=== PATIENT | male | born 1950 ===

== ENCOUNTER 2018-09-28 15:38 | Outpatient (REF) | payer MEDICARE, BC, SELFPAY ==
[2018-09-28 16:23] LABS: HCT 41.4 % (40.0-50.0); HGB 13.8 g/dL (13.5-17.5); Mean Corp. HGB Concentration 33.3 g/dL (32.0-36.0); Mean Corpuscular Hemoglobin 30.5 pg (27.0-33.0); Mean Corpuscular Volume 91.6 fL (80-95); Mean Platelet Volume 11.3 fL (8.0-11.0); Platelet Count 251 x1000/uL (130-400); RBC 4.52 m/cumm (4.50-6.00); RBC Distribution Width 14.2 % (11.8-14.1); White Blood Cell Count 5.95 k/cumm (4.4-10.8)
[2018-09-28 16:43] LABS: Anion Gap 11.5 mmol/L (3-11); BUN 15 mg/dL (7-18); CO2 24.5 mmol/L (21.0-32.0); CREATININE 0.93 mg/dL (0.70-1.30); Chloride 101 mmol/L (98-107); Cholesterol 216 mg/dL (50-200); Glucose 94 mg/dL (70-100); HDL Cholesterol 60 mg/dL (40-60); LDL CHOLESTEROL 128 mg/dL (<100); Potassium 4.7 mmol/L (3.5-5.1); Sodium 137 mmol/L (136-145); Triglyceride 101 mg/dL (30-150)
[2018-09-28 16:50] LABS: Calcium 9.4 mg/dL (8.5-10.1)
== END 2018-09-28 15:58 ==
LOC: NCHCN 15:38
PROVIDERS: PCP Internal Medicine; Visit Provider Internal Medicine
DX: I10 Essential (primary) hypertension (principal); R55 Syncope and collapse; K92.1 Melena; R13.13 Dysphagia, pharyngeal phase; K58.9 Irritable bowel syndrome, unspecified; E66.9 Obesity, unspecified; R42 Dizziness and giddiness
CPT/HCPCS: 80048; 80061; 83721; 85027; 87324

== ENCOUNTER 2018-10-09 04:27 | Outpatient (CLI) | payer MEDICARE, BC, SELFPAY ==
--- NOTE | 2018-11-12 05:39 | CER_ITS ---
PREVENTICE MONITOR DEVICE INTERPRETATION DATE OF STUDY/DICTATION November 11, 2018 INDICATION Dizziness. REQUESTING PROVIDER Geoffrey Velázquez M.D. ANALYSIS TIME The patient was monitored for 20 days and 18 hours. FINDINGS Baseline sinus rhythm. Average heart rate 71 beats per minute, range 55 to 107 beats per minute. Rare ectopt One 8-minute episode of atrial fibrillation. Average heart rate 91 beats per minute. No pauses greater than 3 seconds. No higher degree heart block. SYMPTOMS Three patient events. None of these events correlated with arrhythmias. FINAL INTERPRETATION One 8 minute episode of paroxysmal atrial fibrillation with controlled ventricular response, asymptomatic. Chemo Weiss M.D. ABRAM/paddy T - 11/12/18
== END 2018-10-09 04:47 ==
PROVIDERS: PCP Internal Medicine; Visit Provider Internal Medicine
DX: R55 Syncope and collapse (principal); I48.0 Paroxysmal atrial fibrillation
CPT/HCPCS: 93270

== ENCOUNTER 2018-11-11 14:13 | Outpatient (CLI) | payer MEDICARE, BC, SELFPAY | END 2018-11-11 14:33 | PROVIDERS: PCP Internal Medicine; Referring Provider Internal Medicine; Visit Provider Student in an Organized Health Care Education/Training Program | DX: R55 Syncope and collapse (principal); I48.0 Paroxysmal atrial fibrillation | CPT/HCPCS: 93228 ==

== ENCOUNTER 2018-11-24 16:56 | Outpatient (REF) | payer MEDICARE, BC, SELFPAY ==
[2018-11-24 21:18] LABS: Calculated LDL 97; Cholesterol 199 mg/dL (50-200); HDL Cholesterol 81 mg/dL (40-60); Triglyceride 108 mg/dL (30-150)
== END 2018-11-24 17:16 ==
LOC: NCHCN 16:56
PROVIDERS: PCP Internal Medicine; Visit Provider Internal Medicine
DX: E78.5 Hyperlipidemia, unspecified (principal); E66.9 Obesity, unspecified
CPT/HCPCS: 80061; 83721

== ENCOUNTER 2018-12-09 11:02 | Outpatient (CLI) | payer MEDICARE, BC, SELFPAY ==
--- NOTE | 2018-12-09 09:57 | DI.RAD_ITS ---
SYMPTOMS/DIAGNOSIS: ANKLE PAIN LEFT ANKLE: Three views were obtained. There is a small osteophyte at the site of attachment of the plantar fascia on the calcaneus. The ankle mortise is well maintained. No other significant bony or soft tissue abnormality seen.
== END 2018-12-09 11:22 ==
PROVIDERS: PCP Internal Medicine; Referring Provider Internal Medicine; Visit Provider Student in an Organized Health Care Education/Training Program
DX: M25.572 Pain in left ankle and joints of left foot (principal); M25.772 Osteophyte, left ankle; M25.472 Effusion, left ankle
CPT/HCPCS: 99203; 73610; L1902

== ENCOUNTER 2018-12-16 00:29 | Outpatient (CLI) | payer MEDICARE, BC, SELFPAY ==
--- NOTE | 2018-12-16 09:48 | DI.MRI_ITS ---
SYMPTOM/DIAGNOSIS: LT ANKLE EFFUSION MRI LEFT ANKLE: The anterior talofibular, posterior talofibular, anterior tibial fibular and calcaneal fibular and deltoid, and spring ligaments appear intact. The Achilles flexors and extensors and perineal tendons and tibialis anterior and tibialis posterior tendons are intact. The muscles are unremarkable. There is no joint effusion. Note is made of fluid in the sinus tarsi. Thee is also loss of normal sinus tarsi fat at least some of the ligaments within the sinus tarsi appear to be intact. The tarsal tunnel is unremarkable. The plantar fascia is unremarkable. There is complete loss of the articular cartilage involving the second metatarsal base and intermediate cuneiform. There is also diffuse thinning of the articular cartilage but no other isolated areas of joint space loss are seen. There is edema and cystic change in the fibular tip/lateral malleolus. A small intraosseous ganglion appears to be present also in the lateral malleolus tip with extension in to the adjacent soft tissues. There is a small joint effusion involving the subtalar joint with fluid noted about the posterior and anterior margins of the joint. Edema is also noted in the intermediate cuneiform bone with loss of joint space between the intermediate cuneiform and the second metatarsal base suggesting degenerative osteoarthritis. SUMMARY: Abnormal appearance of the sinus tarsi as noted above. Correlate for the sinus tarsi syndrome. Cystic changes and edema of the fibular tip possibly due to prior trauma and/or degenerative change. There are isolated degenerative arthritic changes involving the intermediate cuneiform and second metatarsal base.
--- NOTE | 2018-12-16 16:28 | DI.VRAD_ITS ---
EXAM: MR Left Lower Extremity Without Contrast, Ankle EXAM DATE/TIME: 12/16/2018 9:47 AM CLINICAL HISTORY: 68 years old, male; Pain; Left; Patient HX: Lt ankle swelling TECHNIQUE: Imaging protocol: MR of the Left ankle without contrast. COMPARISON: CR XR ANKLE LT COMPLETE 12/09/2018 10:08 AM FINDINGS: LIGAMENTS: Anterior talofibular: Unremarkable. No tear. Posterior talofibular: Unremarkable. No tear. Anterior tibiofibular: Unremarkable. No tear. Posterior tibiofibular: Unremarkable. No tear. Calcaneofibular: Appears to be intact, but there is surrounding edema and thickening of the ligament. Deltoid: Unremarkable. No tear. Spring: Unremarkable. No tear. TENDONS: Achilles: Unremarkable. No tear. Flexors: Unremarkable. No tear. Extensors: Unremarkable. No tear. Peroneal: Unremarkable. No tear. Tibialis anterior: Unremarkable. No tear. Tibialis posterior: Unremarkable. No tear. Muscles: Unremarkable. Fluid: No joint effusion. Sinus tarsi: Fluid is present in the sinus Tarsi, There is also loss of normal sinus Tarsi fat. At least some of the ligaments within the sinus Tarsi appear to be intact. Tarsal tunnel: Unremarkable. Plantar fascia: Unremarkable. Cartilage: Complete loss of articular cartilage involving the second metatarsal base and intermediate cuneiform. There is also diffuse thinning of articular cartilage, but no other isolated areas of the joint space loss. Bones/joints: There is edema and cystic change in the fibular tip/lateral malleolus. A small intraosseous ganglion appears to be present also the lateral malleolus tip with extension into the adjacent soft tissues. There is a small joint effusion involving the subtalar joint with fluid noted about both anterior and posterior margins of the joint. Edema is also noted in the intermediate cuneiform bone with loss of joint space between the intermediate cuneiform and second metatarsal base suggesting degenerative osteoarthritic changes. IMPRESSION: 1. Abnormal appearance of the Sinus Tarsi as above. Please correlate for sinus tarsi syndrome. 2. Cystic change and edema of the fibular tip possibly due to prior trauma and/or degenerative change. 3. Isolated degenerative arthritic changes involving the intermediate cuneiform and second metatarsal base. Dictated and Authenticated by: Terry Regan MD. Ordering:FATOUMATA Jimenez MD
== END 2018-12-16 00:49 ==
PROVIDERS: PCP Internal Medicine; Visit Provider Student in an Organized Health Care Education/Training Program
DX: M25.472 Effusion, left ankle (principal); R60.0 Localized edema; M24.172 Other articular cartilage disorders, left ankle; M67.472 Ganglion, left ankle and foot
CPT/HCPCS: 73721; 99213

== ENCOUNTER 2019-02-08 16:00 | Outpatient (CLI) | payer MEDICARE, BC, SELFPAY ==
--- NOTE | 2019-02-08 15:45 | DI.RAD_ITS ---
SYMPTOM/DIAGNOSIS: LEFT FOOT PAIN LEFT FOOT: 02/08 Three views were obtained. There is an apparent flat foot deformity. Mild degenerative changes of the joints of the mid foot and forefoot noted. No other significant bony abnormality seen.
== END 2019-02-08 16:20 ==
PROVIDERS: PCP Internal Medicine; Referring Provider Internal Medicine; Visit Provider Student in an Organized Health Care Education/Training Program
DX: M25.472 Effusion, left ankle (principal); M79.672 Pain in left foot; M21.42 Flat foot [pes planus] (acquired), left foot; M19.072 Primary osteoarthritis, left ankle and foot; M76.822 Posterior tibial tendinitis, left leg
CPT/HCPCS: 99213; 73630

== ENCOUNTER → 2019-04-12 10:06 | Outpatient (BNVA) | payer MEDICARE, BC, SELFPAY | PROVIDERS: PCP Internal Medicine; Referring Provider Internal Medicine; Visit Provider Student in an Organized Health Care Education/Training Program | DX: M25.472 Effusion, left ankle (principal); M76.822 Posterior tibial tendinitis, left leg | CPT/HCPCS: 99213; L4361 ==

== ENCOUNTER 2019-05-10 13:48 | Outpatient (REF) | payer MEDICARE, BC, SELFPAY ==
[2019-05-10 15:28] LABS: Calculated LDL 104 mg/dL; Cholesterol 210 mg/dL (<200); HDL Cholesterol 93 mg/dL (40-60); Triglyceride 67 mg/dL (<150)
== END 2019-05-10 14:08 ==
LOC: NCHCN 13:48
PROVIDERS: PCP Internal Medicine; Visit Provider Internal Medicine
DX: I10 Essential (primary) hypertension (principal); E78.5 Hyperlipidemia, unspecified; I48.0 Paroxysmal atrial fibrillation; I25.10 Atherosclerotic heart disease of native coronary artery without angina pectoris; K58.9 Irritable bowel syndrome, unspecified
CPT/HCPCS: 80061

== ENCOUNTER → 2019-05-17 09:39 | Outpatient (BNVA) | payer MEDICARE, BC, SELFPAY | PROVIDERS: PCP Internal Medicine; Referring Provider Internal Medicine; Visit Provider Student in an Organized Health Care Education/Training Program | DX: M76.822 Posterior tibial tendinitis, left leg (principal) | CPT/HCPCS: 99212 ==

== ENCOUNTER 2019-12-08 03:00 | Outpatient (CLI) | payer MEDICARE, BC, SELFPAY ==
[2019-12-08 09:01] LABS: Hemoglobin A1C 5.5 % (3.8-5.6)
[2019-12-08 09:16] LABS: ALT 43 U/L (16-63); AST 26 U/L (15-37); Albumin 3.8 g/dL (3.4-5.0); Alkaline Phosphatase 92 U/L (46-116); Anion Gap 9.2 mmol/L (3-11); BUN 16 mg/dL (7-18); Bilirubin, Total 0.4 mg/dL (0.2-1.0); CO2 25.8 mmol/L (21.0-32.0); CREATININE 0.91 mg/dL (0.70-1.30); Calculated LDL 72 mg/dL (<100); Chloride 103 mmol/L (98-107); Cholesterol 153 mg/dL (<200); Glucose 109 mg/dL (74-106); HDL Cholesterol 65 mg/dL (40-60); Magnesium 2.1 mg/dL (1.8-2.4); Potassium 4.8 mmol/L (3.5-5.1); Sodium 138 mmol/L (136-145); Total Protein 6.4 g/dL (6.4-8.2); Triglyceride 84 mg/dL (<150)
[2019-12-10 11:41] LABS: Metanephrine, Free <0.20 nmol/L (<0.50); Normetanephrine, Free 0.33 nmol/L (<0.90)
== END 2019-12-08 03:20 ==
PROVIDERS: PCP Internal Medicine; Visit Provider Internal Medicine
DX: E78.5 Hyperlipidemia, unspecified (principal); R73.03 Prediabetes; R61 Generalized hyperhidrosis; R00.2 Palpitations
CPT/HCPCS: 36415; 80053; 80061; 83036; 83735; 83835

== ENCOUNTER → 2019-12-27 15:16 | Outpatient (BNVA) | payer MEDICARE, BC, SELFPAY | PROVIDERS: PCP Internal Medicine; Referring Provider Internal Medicine; Visit Provider Student in an Organized Health Care Education/Training Program | DX: M76.822 Posterior tibial tendinitis, left leg (principal) | CPT/HCPCS: 99213 ==

== ENCOUNTER 2020-03-17 08:29 | Outpatient (CLI) | payer MEDICARE, BC, SELFPAY ==
[2020-03-18 15:00] LABS: COVID-19 RT-PCR Result NEGATIVE (Negative)
== END 2020-03-17 08:49 ==
PROVIDERS: PCP Internal Medicine; Visit Provider Student in an Organized Health Care Education/Training Program
DX: Z11.59 Encounter for screening for other viral diseases (principal); Z01.818 Encounter for other preprocedural examination
CPT/HCPCS: U0003

== ENCOUNTER 2020-03-21 08:04 | Day surgery (SDC) | payer MEDICARE, BC, SELFPAY ==
[2020-03-21] VITALS (8 sets, daily range): BP systolic 96–145; BP diastolic 41–74; PULSE 59–80; RESP 13–22; TEMP 36.2–36.5; O2SAT 93–95
--- NOTE | 2020-03-21 08:30 | DI.RAD_ITS ---
EXAM: XR FOOT LT LIMITED CLINICAL HISTORY: Posteriortibial tendon dysfunction. TECHNIQUE: 2D and realtime digital imaging was performed. COMPARISON: CR XR foot LT complete from 02/08/2019 FINDINGS: Fluoroscopy was provided for Dr. Baird in the OR. Please see procedure note for details. Fluoro time: 57.9 sec, 1.86 mGy RADIATION DOSE DELIVERED:
[2020-03-21] MEDS: Lactated Ringers 1,000 ML 80 ML IV (08:35)
--- NOTE | 2020-03-21 09:34 | PDOC.DSDIS_ITS ---
Discharge Plan Disposition Patient Disposition: HOME Condition: Good Discharge Details Reason For Visit: Left Posterior Tibial Tendon Dysfunction Attending Provider: Tony Baird Primary Care Provider: Geoffrey Velázquez Home Meds and New Rx's Prescriptions: New celecoxib 200 mg capsule 200 mg PO BID PRN (Reason: pain) Qty: 60 RF: 1 aspirin 81 mg tablet,delayed release (DR/EC) 81 mg PO BID Qty: 60 RF: 0 acetaminophen 500 mg tablet 1,000 mg PO Q8H PRN (Reason: pain) Qty: 90 RF: 3 oxycodone 5 mg tablet 5 mg PO Q4H Qty: 18 RF: 0 Continued ezetimibe 10 mg tablet 10 mg PO DAILY RF: 0 Amitiza 24 mcg capsule 24 mcg PO DAILY RF: 0 loratadine 10 mg capsule 10 mg PO DAILY RF: 0 docusate sodium 100 mg capsule 100 mg PO DAILY RF: 0 multivitamin [Daily Multi-Vitamin] 1 EACH tablet 1 ea PO DAILY RF: 0 sildenafil [Viagra] 25 MG tablet 25 mg PO PRN RF: 0 nitroglycerin [Nitrostat] 0.4 MG tablet, sublingual 0.4 mg Buccal ONCE PRNRF: 0 colchicine [Colcrys] 0.6 MG tablet 0.6 mg PO DAILY PRNRF: 0 rosuvastatin [Crestor] 40 MG tablet 40 mg PO DAILY RF: 0 Discharge Instructions Additional Instructions: Dr. Baird?s Discharge Instructions Activity: You should remain non weight bearing to the left leg. You should use crutches, walker or knee scooter. It is okay to rest the foot on the ground but do not push off of the leg. Dressing: Keep the splint in place. Keep it clean and dry. Medications: - You should take Tylenol and anti-inflammatory Celebrex as your primary pain control medications. If this medication is not covered or too expensive, you may take 2 Aleve twice a day. - You have been prescribed a stronger pain medication Oxycodone for breakthrough pain, take as needed as prescribed. - You have also been prescribed a stomach acid reduction agent Pantoprozole to help reduce stomach acid and reflux. - You will be taking Aspirin 81mg twice a day for DVT prevention unless instructed otherwise. - If you have constipation you should take Colace or Miralax (both [id number]). It takes most people 3-4 days to have a bowel movement. Follow-up: 2 weeks. You should also call physical therapy to work on scheduling outpatient therapy sessions which can begin at 2 weeks. If you have any acute concerns or questions, please do not hesitate to contact the office at [phone]. You may contact Dr. Baird with any questions after hours through the hospital at [phone] or on his cell phone at [phone]. Referrals: Tony Baird MD [ [facility] STAFF PHYSICIAN] - Equipment/Supplies: Non-Weight Bearing Crutches and Splint Activity:: Elevate Remove Dressings/Wound Care:: Do Not Remove Shower/Bathe:: Cover Diet:: As Tolerated Discharge Orders Discharge Orders: Discharge Order (Routine); Ordered 03/21/20 Ordered By: Tony Baird
[2020-03-21] MEDS: ceFAZolin 2 GM/50 ML BAG IVPB (09:37)
[2020-03-21] MEDS: Bupivacaine 0.25% Pres-Free 30 ML VIAL (12:23)
[2020-03-21] MEDS: Bupivacaine LIPOSOME/PF 133 MG/10 ML VIAL IJ (12:23)
--- NOTE | 2020-03-22 16:58 | ROE_ITS ---
Date of service: 03/21/20 Time of Service: 12:10 Operative Note Operative Note DATE OF PROCEDURE: 03/21/20 PRE-OP DIAGNOSIS: Left Stage III Posterior Tibial Dysfunction POST-OP DIAGNOSIS: same PROCEDURE: Left Triple Arthrodesis with Gastroc Recession SURGEON: Tony Baird SUSPENDER CUTTER: Yanira Turner ANESTHESIA: spinal ESTIMATED BLOOD LOSS: 100 PATHOLOGY: none sent TOURNIQUET TIME: 120 COMPLICATIONS: None Patient was transported to: PACU Patient's condition: stable Implants: Arthrex 5.0 and 7.0mm cannulated compression screws. Arthrex aditya (#4) Indications: Maycol is a 69-year-old who has dealt with left foot pain and weakness and deformity for years. He has tried to treat this conservatively. However, he continues to have pain and limitations. He was seen by myself and at [facility] for a second opinion where triple arthrodesis was recommended due t o a stage III posterior tibial tendon dysfunction. I reviewed the risks such as bleeding, infection, pain, stiffness, malunion, nonunion, hardware prominence, hardware faiilure, damage to nerves and vessels, blood clot. Despite these risks, Maycol agreed to proceed. Findings: A triple arthrodesis was performed with screws and aditya without difficulty. Procedure Description: Maycol was greeted in the preoperative area. Consent was reviewed the patient and signed. A history and physical was updated. Once in the operating room, spinal anesthesia was administered. He was positioned in the supine position with the operative side placed onto a bone foam ramp. All bony prominences were well padded. Arms were placed out to the side, padded, and secured. A single dose of TXA, 1 gram, was then administered IV. Prophylactic antibiotics, cefazolin 2 grams, was given for prophylactic antibiotics. A tourniquet was placed high onto the left leg. A timeout was performed for safe surgery. The left leg was prepped with Chloraprep. The leg was draped with a stockinette and extremity drape. The left leg was then exsanguinated and the tourniquet inflated where it stayed for 120 minutes. A gastroc recession was performed first. The left leg externally rotated midpoint between the fibular tip and the head of the tibia was marked and using a reference point. The incision was made off the medial border of the gastrocsoleus complex. This was taken down to the superficial fascia. Once this was identified it was incised. Deep fascia was then recognized and cleared of any soft tissue. This was also incised sharply. Blunt dissection was able to separate psoas and gastrocnemius. The gastrocnemius tendon was isolated. Blunt dissection was carried over the width of the tendon and retractors were placed making sure to protect any neurovascular bundles. Once this was clear the gastrocnemius tendon was transected. This gained about 15 mm separation which corresponds about 15 degrees of dorsiflexion. The posterior fascia was then closed with interrupted 0 Vicryl. The deeper tissue was closed with 2-0 Vicryl. The skin was closed with 3-0 nylon. This area was injected with a mixture of 0.25% bupivacaine with Exparel. Attention was then turned to the foot. The standard lateral approach to the subtalar joint and the calcaneal joint was used to open the tip of the fibula to the base of the fourth metatarsal. This was taken down sharply through the skin. The upper border of the peroneal tendons was identified and used as a landmark. Deep dissection was carried down over the superior margin and the extensor digitorum brevis muscle belly was elevated exposing the subtalar joint, sinus Tarsi and calcaneocuboid joint. A Mac elevator was used to elevate off capsular tissues from around the subtalar joint as well as the calcaneocuboid joint. A small joint distractor was placed on the subtalar joint. Using a curette and remove the cartilage from the surfaces of the talus and the calcaneus. This is done for the posterior faect middle facet. The anterior facet was difficult to reach until later in the case. Attention was then turned to the calcaneocuboid joint. This was also distracted and capsular tissues were released with a Mac and with a knife. Curette was used to remove the cartilage. Once the joint is fully denuded of any cartilage I then used a set of chisels to feather the joint surfaces. Attention was then turned to the medial aspect of the foot. A standard dorsomedial incision was made from the tip of the medial malleolus towards the base of the first TMT joint. This is a not sharp to the skin. Deeper dissection was carried out between the posterior tibial tendon and the tibialis anterior tendon. The talonavicular joint and subtalar joint was identified. Deep tissue was elevated off to expose the joint. Further dissection was performed bluntly with a Mac elevator. A small joint distractor was once again utilized to open up the talonavicular joint. A curette removed the cartilage from the surface of the talus and the navicular. We had excellent visualization throughout the entirety of the 10 navicular joint. To ensure that we fully remove the cartilage from the lateral aspect of the talonavicular joint I r eapproach this from the lateral wound check once further. I also use this medial wound to further denude the anterior facet of the subtalar joint. Once these were all completed I continued with the feathering of the talonavicular joint followed by the subtalar joint. This was all performed with a chisel. I did fenestrate some holes into the joint surfaces with a 2.0 mm drill. With all of the joint surfaces now prepared, I reduce the foot. This was done by bringing the subtalar joint and approximately 5 degrees of valgus. The talonavicular joint was brought into some slight abduction, elevation, and pronation. A K wire from the 5.0 mm Arthrex cannulated screw system was then used to pin the talonavicular joint. Likewise, while holding reduction, a guidewire from the 7.0 mm cannulated screw system was then driven across the subtalar joint through the posterior facet starting in the calcaneal tuberosity. The foot was inspected. It appeared he plantigrade in appropriate position. X-rays also showed good positioning of the first 2 K wires. A second K wire was then placed from the calcaneus into the talus. This was placed slightly more medial. The attempt was to be divergent on the AP. Both screws were into the talar body and across the posterior facet. Starting with the subtalar joint and then placed 2 screws. The cortex was first open followed by tapered reamer af ter measuring the distance of the screw. Two 7.0 mm cannulated fully threaded compression screws were then placed across the subtalar joint. Just prior to passing these I did place demineralized bone matrix into the joint space. Screws were placed, driven below the edge of the bone. These provide adequate compression of the subtalar joint. This was visually inspected and should have no gapping. I then turned my attention to the talonavicular joint. Using the previous guidewire placed to hold the toe navicular joint stable I use this to place a 5.0 mm cannulated fully threaded screw. This is done in a similar fashion as a 7.0 millimeter screws and did so with excellent compression across the toe navicular joint. The compression was definitely mostly plantar and medial. Therefore, I was going to augment this fusion site with a staple. Using the ArthPayteller staple system I then prepared the pathway for the stable and loaded the staple into the spots. During this process there was a shift of the retractor which we thought had been replaced to the appropriate position. However, when the staple went and realized that stable and slid almost directly on top of the screw. However, there still was purchase in the bone and therefore I did leave. Nevertheless, I did place a second staple into the talonavicular joint with more dorsal as initially planned. This went in with no difficulty an x-ray showed that it was appropriate position in the talus and the navicular. Lastly, attention was turned back to the calcaneocuboid joint. Small amount demineralized bone matrix was placed within this joint. The calcaneocuboid joint was in excellent position without any other manipulation required. Therefore, I placed 2 aditya in a similar fashion without difficulty. After the aditya were placed final x-rays were obtained. The foot was plantigrade and was once again reviewed to make sure there is no other further concerns or issues with his alignment. The tourniquet was released at 120 minutes. There is no significant bleeding. The wounds were thoroughly irrigated. The skin, soft tissues, and deep tissues were injected with mixture of bupivacaine and Exparel. The medial wound was closed in a standard interrupted layered format. The lateral wound was closed first by incorporating the fascia of the EDB with the fascia of the lateral foot and then the skin and soft tissues. The wounds were dressed with Xeroform, 4 x 4's, ABD, cast padding. A short leg splint was applied. At the end of the case, all counts were correct. Maycol tolerated the procedure well without known complication and was taken to the PACU for recovery. He will be nonweightbearing in the left lower extremity until his follow-up.
== END 2020-03-21 14:35 | disposition home or self-care (01) ==
PROVIDERS: PCP Internal Medicine; Visit Provider Student in an Organized Health Care Education/Training Program
PROC: (CPT 28740; principal; 2020-03-21 10:00)
DX: M67.874 Other specified disorders of tendon, left ankle and foot (principal)
CPT/HCPCS: 28715; 27687; 73620; J0131; J0690; J1100; J1885; J2001; J2405; J3010

== ENCOUNTER 2020-04-06 10:20 | Outpatient (CLI) | payer MEDICARE, BC, SELFPAY ==
--- NOTE | 2020-04-06 10:28 | DI.RAD_ITS ---
EXAM: XR ANKLE LT COMPLETE CLINICAL HISTORY: s/p surgery. TECHNIQUE: 2D digital imaging was performed. COMPARISON: CR XR ANKLE LT COMPLETE from 12/09/2018 CR XR foot LT complete from 02/08/2019 XR FOOT LT LIMITED from 03/21/2020 FINDINGS: BONES: There are stable post operative changes present. No fracture or dislocation. Small plantar ca lcaneal spur. JOINTS: The joint spaces are well maintained. No joint effusion is present. SOFT TISSUE: Mild soft tissue swelling of the hindfoot. Vascular calcifications are present. IMPRESSION: Stable postoperative changes. DATA REPOSITORY: RADIATION DOSE DELIVERED:
== END 2020-04-06 10:40 ==
PROVIDERS: PCP Internal Medicine; Referring Provider Internal Medicine; Visit Provider Student in an Organized Health Care Education/Training Program
DX: Z98.1 Arthrodesis status (principal); M77.32 Calcaneal spur, left foot; M67.874 Other specified disorders of tendon, left ankle and foot; Z47.89 Encounter for other orthopedic aftercare
CPT/HCPCS: 73610

== ENCOUNTER 2020-05-04 12:01 | Outpatient (CLI) | payer MEDICARE, BC, SELFPAY ==
--- NOTE | 2020-05-04 11:15 | DI.RAD_ITS ---
EXAM: XR ANKLE LT COMPLETE CLINICAL HISTORY: post operative. TECHNIQUE: 2D digital imaging was performed. COMPARISON: CR XR ANKLE LT COMPLETE from 04/06/2020 FINDINGS: Again noted is fusion hardware in the hindfoot including 2 parallel threaded screws through the subta lar joint and aditya across the calcaneocuboid and talonavicular joints. There is no evidence of hardware loosening or fracture of the heart. No radiographic evidence of loo sening nor osteomyelitis. There is some soft tissue swelling evident over both sides of the ankle, s lightly more so than previous. Talar dome appears unremarkable. Vascular calcification is noted in the dorsalis pedis artery. Small inferior calcaneal spurs again noted. IMPRESSION: As above. Radiographically unchanged from 04/06/2020. DATA REPOSITORY: RADIATION DOSE DELIVERED:
== END 2020-05-04 12:21 ==
PROVIDERS: PCP Internal Medicine; Referring Provider Internal Medicine; Visit Provider Student in an Organized Health Care Education/Training Program
DX: Z98.1 Arthrodesis status (principal); Z47.89 Encounter for other orthopedic aftercare
CPT/HCPCS: 73610

== ENCOUNTER → 2020-09-29 09:14 | Outpatient (BNVA) | payer MEDICARE, BC, SELFPAY | PROVIDERS: PCP Internal Medicine; Referring Provider Internal Medicine; Visit Provider Student in an Organized Health Care Education/Training Program | DX: M25.572 Pain in left ankle and joints of left foot (principal); Z98.1 Arthrodesis status ==

== ENCOUNTER 2020-09-29 15:26 | Outpatient (CLI) | payer MEDICARE, BC, SELFPAY ==
--- NOTE | 2020-09-29 09:45 | DI.RAD_ITS ---
Exam(s) XR ANKLE LT COMPLETE EXAM: XR ANKLE LT COMPLETE CLINICAL HISTORY: f/u L triple arthrodesis with pain, S/P ANKLE FUSION, Z98.1 TECHNIQUE: 2D digital imaging was performed. COMPARISON: CR XR ANKLE LT COMPLETE from 05/04/2020 FINDINGS: BONES: No acute osseous fracture is present. No bony destructive lesion is seen. Postoperative change s are seen in the foot. Three of the 4 orthopedic aditya are now fractured. There is a small plant ar calcaneal spur. JOINTS:The ankle mortise is normally aligned. SOFT TISSUE: Vascular calcifications are seen in the soft tissues. IMPRESSION: DATA REPOSITORY: RADIATION DOSE DELIVERED:
== END 2020-09-29 15:46 ==
PROVIDERS: PCP Internal Medicine; Visit Provider Student in an Organized Health Care Education/Training Program
DX: M25.572 Pain in left ankle and joints of left foot (principal); Z98.1 Arthrodesis status; M77.32 Calcaneal spur, left foot
CPT/HCPCS: 99213; 73610

== ENCOUNTER 2020-10-05 02:21 | Outpatient (CLI) | payer MEDICARE, BC, SELFPAY ==
--- NOTE | 2020-10-05 08:00 | DI.CT_ITS ---
Exam(s) CT LOWER EXTREMITY LT WO EXAM: CT LOWER EXTREMITY LT WO CLINICAL HISTORY: eval subtalar fusion,S/P ANKLE FUSION,Z98.1 TECHNIQUE: COMPARISON: No exams were available for comparison FINDINGS: Noncontrast CT examination left foot performed. Patient has had a subtalar arthrodesis with fixation screws transfixing talus and calcaneus. Slight bony bridging appears to be present at a few sites o n today's examination. Note is also made of talonavicular arthrodesis, moderate bony bridging presen t here. A calcaneocuboid arthrodesis is also present, mild to moderate bony bridging present. Minimal degenerative changes the remaining midfoot joints are. No gross erosive or destructive proce ss. Fairly well maintained tibial joint noted. IMPRESSION: Intact arthrodesis as described above. 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 P lease see above discussion RADIATION DOSE DELIVERED: 406.67mGy.cm Total DLP RADIATION OPTIMIZATION: All CT scans at this facility use at least one of these dose optimization te chniques: automated exposure control; mA and/or kV adjustment per patient size (includes targeted exa ms where dose is matched to clinical indication); or iterative reconstruction.
== END 2020-10-05 02:41 ==
PROVIDERS: PCP Internal Medicine; Visit Provider Student in an Organized Health Care Education/Training Program
DX: Z98.1 Arthrodesis status (principal); M25.572 Pain in left ankle and joints of left foot
CPT/HCPCS: 73700

== ENCOUNTER → 2020-11-02 13:01 | Outpatient (BNVA) | payer MEDICARE, BC, SELFPAY | PROVIDERS: PCP Internal Medicine; Referring Provider Internal Medicine; Visit Provider Student in an Organized Health Care Education/Training Program | DX: M76.72 Peroneal tendinitis, left leg (principal); M25.572 Pain in left ankle and joints of left foot; Z98.1 Arthrodesis status | CPT/HCPCS: 20605; J1030 ==

== ENCOUNTER 2020-11-03 16:37 | Outpatient (REF) | payer MEDICARE, BC, SELFPAY ==
[2020-11-03 20:43] LABS: HCT 38.5 % (40.0-50.0); HGB 12.6 g/dL (13.5-17.5); MCH 29.4 pg (27.0-33.0); MCHC 32.7 % (32.0-36.0); MPV 10.6 fL (8.0-11.0); Platelet Count 274 10^3/uL (130-400); RBC 4.28 10^6/uL (4.36-5.78); RDW 13.7 % (11.8-14.1); RDW-SD 44.9 fL
[2020-11-03 21:01] LABS: Hemoglobin A1C 5.7 % (<5.7)
[2020-11-03 21:04] LABS: Anion Gap 13.5 mmol/L (3-11); BUN 14 mg/dL (7-18); CO2 21.5 mmol/L (21.0-32.0); CREATININE 0.9 mg/dL (0.70-1.30); Calcium 9.2 mg/dL (8.5-10.1); Calculated LDL 67 mg/dL (<100); Chloride 103 mmol/L (98-107); Cholesterol 155 mg/dL (<200); Glucose 82 mg/dL (74-106); HDL Cholesterol 72 mg/dL (40-60); Potassium 4.3 mmol/L (3.5-5.1); Sodium 138 mmol/L (136-145); Triglyceride 80 mg/dL (<150)
[2020-11-06 09:13] LABS: Iron 83 ug/dL (65-175); Total Iron Binding Capacity 330 ug/dL (250-450); Transferrin Sat 25 % (20-55)
[2020-11-06 09:20] LABS: PSA, Screening 0.7 ng/mL (0.0-4.5)
== END 2020-11-03 16:38 | disposition home or self-care (01) ==
LOC: NCHCN 16:37
PROVIDERS: PCP Internal Medicine; Visit Provider Internal Medicine
DX: D64.9 Anemia, unspecified (principal); I10 Essential (primary) hypertension; E78.5 Hyperlipidemia, unspecified; R73.03 Prediabetes; I25.10 Atherosclerotic heart disease of native coronary artery without angina pectoris; R10.30 Lower abdominal pain, unspecified; R35.0 Frequency of micturition; Z12.5 Encounter for screening for malignant neoplasm of prostate
CPT/HCPCS: 80048; 80061; 84153; 85027; 83036; 83540; 83550

== ENCOUNTER 2020-11-15 00:56 | Outpatient (CLI) | payer MEDICARE, BC, SELFPAY ==
[2020-11-15] MEDS: Breeza Beverage 473 ML BTL PO (09:35)
--- NOTE | 2020-11-15 10:58 | DI.CT_ITS ---
Exam(s) CT ABDOMEN PELVIS W EXAM: CT ABDOMEN PELVIS W CLINICAL HISTORY: LOW ABD PAIN,R10.30,URINARY FREQUENCY,R35.0,CHANGE IN BOWELS,R19.4. TECHNIQUE: Imaging Protocol: Axial computed tomography images with coronal and sagittal reformatted images were created and reviewed CONTRAST MATERIAL: Intravenous: Omnipaque 100cc Oral: None COMPARISON: No exams were available for comparison FINDINGS: VISUALIZED LUNG BASES: There is a 2-3 millimeter small nodule in the right lower lobe incidentally no lucretia on the uppermost images of this abdominal study. No pleural effusions.. ABDOMEN: There is no ascites. LIVER: There are no focal hepatic lesions evident. No dilatation of intrahepatic ducts. There is in terposition of large bowel between the right hepatic lobe and the anterior abdominal wall. GALLBLADDER/BILIARY: No obvious gallbladder pathology. CBD is not dilated. PANCREAS: No evidence of pancreatic mass nor dilatation of the pancreatic duct. SPLEEN: Spleen is not enlarged. No obvious intrasplenic lesions. Splenic and portal veins are paten t. ADRENALS: There are no significant adrenal masses. KIDNEYS:The left kidney is surgically absent. There is no abnormal tissue in left renal fossa. No r egional adenopathy evident. There is mild streaking around the remaining right kidney. No hydroneph rosis. There is a small benign cyst in the anterior cortex of the right kidney which measures 1.2 x 1.0 cm. No solid mass evident in the right kidney.. ABDOMINAL AORTA: There is a mild fusiform hourglass shaped infrarenal abdominal aortic aneurysm. Thi s exhibits maximum diameter of 0.1 cm. Diameter of the common iliac arteries upper normal. LYMPH NODES:There is no retroperitineal nor paraaortic adenopathy. ABDOMINAL WALL: No evidence of significant anterior abdominal wall hernia. GI: There is no evidence of bowel obstruction, free air, nor abscess. PELVIS: GI: No evidence of appendicitis.There is sigmoid diverticulosis. No obvious acute diverticulitis. LYMPH NODES: There is no intrapelvic nor inguinal adenopathy. REPRODUCTIVE: Prostate gland is not enlarged. URINARY BLADDER: No calculi nor obvious masses evident OSSEOUS: No significant osseous lesions. IMPRESSION: 1. Left kidney is surgically absent. There is no abnormal tissue in the left renal fossa. No signif icant focal findings in the remaining right kidney with the exception of a small benign cortical cyst . There is some mild perinephric streaking also noted. Slight prominence of the diameter of the rig ht ureter is noted although this may just be related to compensatory urine output by this single adiel ining kidney. 2. No adenopathy evident. No ascites. RADIATION DOSE DELIVERED: 1,603.08mGy.cm Total DLP DATA REPOSITORY: All CT scans at this facility are submitted to the National Radiology Data Registry (NRDR) Dose Index Registry (DIR) with the [employer] (A[employer]). RADIATION OPTIMIZATION: All CT scans at this facility use at least one of these dose optimization te chniques: automated exposure control; mA and/or kV adjustment per patient size (includes targeted exa ms where dose is matched to clinical indication); or iterative reconstruction.
[2020-11-15] MEDS: Omnipaque 350 MG/ML 100 ML BTL IJ (11:00)
[2020-11-15] MEDS: Normal Saline - Diluent 50 ML VIAL IV (11:00)
== END 2020-11-15 01:16 ==
PROVIDERS: PCP Internal Medicine; Visit Provider Internal Medicine
DX: N28.1 Cyst of kidney, acquired (principal); R35.0 Frequency of micturition; R19.4 Change in bowel habit; Z90.5 Acquired absence of kidney
CPT/HCPCS: 74177; J3490

== ENCOUNTER 2020-12-18 15:48 | Outpatient (CLI) | payer MEDICARE, BC, SELFPAY | END 2020-12-18 15:49 | disposition home or self-care (01) | LOC: DIORS 15:48 | PROVIDERS: PCP Internal Medicine; Referring Provider Internal Medicine; Visit Provider Student in an Organized Health Care Education/Training Program | DX: M75.81 Other shoulder lesions, right shoulder (principal); M76.72 Peroneal tendinitis, left leg; M25.572 Pain in left ankle and joints of left foot; Z98.1 Arthrodesis status | CPT/HCPCS: 20610; 99213; J1040 ==

== ENCOUNTER 2021-04-09 10:07 | Outpatient (CLI) | payer MEDICARE, BC, SELFPAY ==
--- NOTE | 2021-04-09 09:45 | DI.RAD_ITS ---
Exam(s) XR SHOULDER RT COMPLETE 2+V EXAM: XR SHOULDER RT COMPLETE 2+V CLINICAL HISTORY: rt shoulder pain. TECHNIQUE: 2D digital imaging was performed of the right shoulder. Four images were obtained. AP, Y-view and axillary views were obtained. COMPARISON: No exams were available for comparison FINDINGS: BONES: No acute fracture is present. No bony destructive lesion is seen. JOINTS: No dislocation present. Moderately severe degenerative changes are seen at the glenohumeral j oint with joint space narrowing and periarticular spurring. Moderate hypertrophic changes are seen a t the acromioclavicular joint. SOFT TISSUE: Normal. IMPRESSION: Osteoarthritis as described above. DATA REPOSITORY: RADIATION DOSE DELIVERED:
--- NOTE | 2021-04-09 09:53 | DI.RAD_ITS ---
Exam(s) XR ANKLE LT COMPLETE EXAM: XR ANKLE LT COMPLETE CLINICAL HISTORY: ankle fusion. TECHNIQUE: 2D digital imaging was performed. Three images were obtained. AP, oblique and lateral i mages of the ankle were obtained. COMPARISON: CR XR ANKLE LT COMPLETE from 09/29/2020 FINDINGS: BONES: There are stable post operative changes present. No acute fracture or dislocation. Small nick ntar calcaneal spur. JOINTS: Degenerative changes are seen at the talonavicular joint. No joint effusion is present. SOFT TISSUE: Atherosclerosis. IMPRESSION: Stable postoperative changes. DATA REPOSITORY: RADIATION DOSE DELIVERED:
== END 2021-04-09 10:08 | disposition home or self-care (01) ==
LOC: DIORS 10:07
PROVIDERS: PCP Internal Medicine; Referring Provider Internal Medicine; Visit Provider Student in an Organized Health Care Education/Training Program
DX: M75.81 Other shoulder lesions, right shoulder (principal); Z98.1 Arthrodesis status; M19.011 Primary osteoarthritis, right shoulder; M25.511 Pain in right shoulder
CPT/HCPCS: 99214; 73030; 73610

== ENCOUNTER 2021-04-19 01:21 | Outpatient (CLI) | payer MEDICARE, BC, SELFPAY ==
--- NOTE | 2021-04-19 08:00 | DI.RAD_ITS ---
Exam(s) RF JOINT INJECTION FLUORO GUID EXAM: RF JOINT INJECTION FLUORO GUID CLINICAL HISTORY: R SHOULDER PAIN,fluoro guided injection, rt rotator cuff tendinitis, m75.81 TECHNIQUE: Fluoroscopy provided. Radiologist not present. CONTRAST MATERIAL: None COMPARISON: No exams were available for comparison FINDINGS: Fluoroscopy was provided for Dr. Baird during right shoulder joint injection. Submitted image(s) reveal needle placement in the superomedial aspect the humeral head. Intra-articu lar contrast injected. Please refer to the procedure report for complete details. Cumulative Dose: montrell Gong=0.812 mGy IMPRESSION: RADIATION DOSE DELIVERED:
[2021-04-19] MEDS: methylPREDNISolone ACETATE 80 MG/ML VIAL IM (15:48)
[2021-04-19] MEDS: Omnipaque 300 MG/ML 10 ML BTL IJ (15:48)
[2021-04-19] MEDS: Bupivacaine 0.5% Pres-Free 10 ML VIAL IJ (15:48)
--- NOTE | 2021-04-19 22:31 | W.PROCNOTE ---
Date of service: 04/19/21 Time of Service: 14:31 Procedure Note Date of procedure: 04/19/21 Procedure: Right Shoulder Injection Surgeon/Proceduralist/Physician: Tony Baird Procedure Diagnosis: Right Shoulder Arthritis Procedure Indications: Saul has had persistent pain of the RIGHT shoulder. Noninvasive measures have been tried. To serve as both diagnostic and therapeutic, an injection under fluoroscopy was recommended. I had discussed the risks of the procedure and the patient elected to proceed. Procedure Description: Saul was greeted in the flouroscopy room. The correct side was identified and the consent was reviewed with the patient and signed. The patient was then placed in the supine position on the fluoroscopy table. The RIGHT shoulder was then prepped with Chloraprep. The anterior injection starting point was identiifed by bony landmarks and fluoroscopy. The skin and soft tissue in the tract of the injection was anesthetized with 1% Lidocaine. A spinal needle was then inserted deep into the shoulder joint at the level of the recess between the glenoid and superior humeral head. A small amount of Omnipaque solution was injected to confirm intraarticular placement. Once confirmed, the shoulder was injected with 4cc of 0.5% Bupivicaine and 80mg of Depo-Medrol. A bandaid was placed on the injection site. The patient tolerated the procedure well and noted improvement in pre-injection pain.
== END 2021-04-19 01:41 ==
PROVIDERS: PCP Internal Medicine; Visit Provider Student in an Organized Health Care Education/Training Program
DX: M19.011 Primary osteoarthritis, right shoulder (principal); M25.511 Pain in right shoulder
CPT/HCPCS: 20610; 77002; J1040

== ENCOUNTER 2021-10-08 18:22 | Outpatient (REF) | payer MEDICARE, BC, SELFPAY ==
[2021-10-08 16:34] LABS: HCT 39.8 % (40.0-50.0); HGB 12.9 g/dL (13.5-17.5); MCH 29.5 pg (27.0-33.0); MCHC 32.4 % (32.0-36.0); MCV 91 fL (80-95); MPV 10.2 fL (8.0-11.0); Platelet Count 254 10^3/uL (130-400); RBC 4.38 10^6/uL (4.36-5.78); RDW 14.3 % (11.8-14.1); RDW-SD 48.3 fL; WBC 5.38 10^3/uL (4.4-10.8)
[2021-10-08 16:48] LABS: ALT 40 U/L (16-63); AST 21 U/L (15-37); Albumin 3.9 g/dL (3.4-5.0); Alkaline Phosphatase 72 U/L (46-116); BUN 12 mg/dL (7-18); Bilirubin, Total 0.4 mg/dL (0.2-1.0); CREATININE 0.9 mg/dL (0.70-1.30); Calcium 8.9 mg/dL (8.5-10.1); Chloride 100 mmol/L (98-107); Glucose 105 mg/dL (74-106); Potassium 4.7 mmol/L (3.5-5.1); Sodium 133 mmol/L (136-145); Total Protein 6.6 g/dL (6.4-8.2)
== END 2021-10-08 18:23 | disposition home or self-care (01) ==
LOC: NCHCN 18:22
PROVIDERS: PCP Internal Medicine; Visit Provider Family Medicine
DX: I10 Essential (primary) hypertension (principal)
CPT/HCPCS: 80053; 85027

== ENCOUNTER 2022-01-16 12:16 | Outpatient (REF) | payer MEDICARE, BC, SELFPAY ==
[2022-01-16 14:11] LABS: HCT 39.7 % (40.0-50.0); HGB 13.5 g/dL (13.5-17.5); MCH 30.7 pg (27.0-33.0); MCV 90 fL (80-95); MPV 10.6 fL (8.0-11.0); Platelet Count 273 10^3/uL (130-400); RDW 13.2 % (11.8-14.1); RDW-SD 43.8 fL; WBC 5.54 10^3/uL (4.4-10.8)
[2022-01-16 14:30] LABS: ALT 36 U/L (16-63); AST 21 U/L (15-37); Albumin 3.8 g/dL (3.4-5.0); Alkaline Phosphatase 84 U/L (46-116); BUN 17 mg/dL (7-18); Bilirubin, Total 0.4 mg/dL (0.2-1.0); CREATININE 0.9 mg/dL (0.70-1.30); Calcium 8.8 mg/dL (8.5-10.1); Chloride 103 mmol/L (98-107); Glucose 106 mg/dL (74-106); Potassium 4.5 mmol/L (3.5-5.1); Sodium 137 mmol/L (136-145); Total Protein 6.9 g/dL (6.4-8.2)
== END 2022-01-16 12:17 | disposition home or self-care (01) ==
LOC: NCHCN 12:16
PROVIDERS: PCP Internal Medicine; Visit Provider Family Medicine
DX: I10 Essential (primary) hypertension (principal); E66.9 Obesity, unspecified; Z01.818 Encounter for other preprocedural examination
CPT/HCPCS: 80053; 85027

== ENCOUNTER 2022-10-24 19:57 | Outpatient (REF) | payer MEDICARE, BC, SELFPAY ==
[2022-10-24 20:07] LABS: Abs Immature Grans 0.04 10^3/uL (0.0-0.06); Absolute Basophil Count 0.06 10^3/uL (0.0-0.2); Absolute Eosinophil Count 0.14 10^3/uL (0.0-0.7); Absolute Lymphocyte Count 1.79 10^3/uL (1.2-3.4); Absolute Neutrophil Count 7.03 10^3/uL (1.2-6.7); Basophils % 0.6; Eosinophils % 1.4; HCT 37.8 % (40.0-50.0); HGB 12.4 g/dL (13.5-17.5); Immature Grans % 0.4; Lymphocytes % 18.2; MCH 29.5 pg (27.0-33.0); MCHC 32.8 % (32.0-36.0); MCV 90 fL (80-95); MPV 10.2 fL (8.0-11.0); Monocytes % 8.1; Neutrophils % 71.3; Platelet Count 343 10^3/uL (130-400); WBC 9.86 10^3/uL (4.4-10.8)
[2022-10-24 20:21] LABS: ALT 45 U/L (16-63); AST 20 U/L (15-37); Albumin 3.8 g/dL (3.4-5.0); Alkaline Phosphatase 103 U/L (46-116); BUN 21 mg/dL (7-18); Bilirubin, Total 0.3 mg/dL (0.2-1.0); Calcium 9.6 mg/dL (8.5-10.1); Chloride 100 mmol/L (98-107); Estimated GFR 80.97 (mL/min/1.73m2); Glucose 102 mg/dL (74-106); Potassium 4.5 mmol/L (3.5-5.1); Sodium 134 mmol/L (136-145); Total Protein 7.5 g/dL (6.4-8.2)
[2022-10-24 20:49] LABS: Hemoglobin A1C 5.7 % (<5.7)
== END 2022-10-24 19:58 | disposition home or self-care (01) ==
LOC: NCHCN 19:57
PROVIDERS: PCP Internal Medicine; Visit Provider Family Medicine
DX: I25.10 Atherosclerotic heart disease of native coronary artery without angina pectoris (principal); I10 Essential (primary) hypertension; R73.03 Prediabetes; E78.5 Hyperlipidemia, unspecified; E66.9 Obesity, unspecified
CPT/HCPCS: 80053; 83036; 85025

== ENCOUNTER → 2023-04-28 01:51 | Outpatient (CLI) | payer MEDICARE, BC, SELFPAY ==
--- NOTE | 2023-04-28 13:50 | DI.RAD_ITS ---
Exam(s) XR CHEST 2V PA LATERAL EXAM: XR CHEST 2V PA LATERAL CLINICAL HISTORY: DYSPNEA ON EXERTION R06.09 TECHNIQUE: 2D digital imaging was performed of the chest. Two images were obtained. PA and lateral views were obtained. COMPARISON: CR CHEST 2 VIEWS PA,LAT from 04/18/2017 FINDINGS: MEDIASTINUM: Normal. HEART: Normal. There is a cardiac monitoring device in place. PULMONARY VASCULATURE: Normal. LUNGS: Clear. PLEURAL SPACE: No pleural effusion or pneumothorax. BONE:Within normal limits for the patient's age. OTHER FINDINGS:Surgical clips are again seen in the upper abdomen. IMPRESSION: No acute pulmonary findings. DATA REPOSITORY: RADIATION DOSE DELIVERED:
== END ==
PROVIDERS: PCP Family Medicine; Visit Provider Family Medicine
DX: R06.09 Other forms of dyspnea (principal)
CPT/HCPCS: 71046

== ENCOUNTER 2023-10-30 10:40 | Outpatient (REF) | payer MEDICARE, BC, SELFPAY ==
[2023-10-30 14:47] LABS: Abs Immature Grans 0.01 10^3/uL (0.0-0.06); Absolute Basophil Count 0.04 10^3/uL (0.0-0.2); Absolute Eosinophil Count 0.08 10^3/uL (0.0-0.7); Absolute Lymphocyte Count 0.72 10^3/uL (1.2-3.4); Absolute Monocyte Count 0.58 10^3/uL (0.1-0.8); Absolute Neutrophil Count 3.19 10^3/uL (1.2-6.7); Basophils % 0.9 %; Eosinophils % 1.7 %; HCT 38.2 % (40.0-50.0); HGB 12.4 g/dL (13.5-17.5); Immature Grans % 0.2 %; Lymphocytes % 15.6 %; MCHC 32.5 % (32.0-36.0); MCV 90 fL (80-95); Monocytes % 12.6 %; Platelet Count 230 10^3/uL (130-400); RBC 4.27 10^6/uL (4.36-5.78); RDW 13.9 % (11.8-14.1); RDW-SD 45.4 fL; WBC 4.62 10^3/uL (4.4-10.8)
[2023-10-30 15:18] LABS: ALT 28 U/L (16-63); AST 19 U/L (15-37); Alkaline Phosphatase 76 U/L (46-116); Anion Gap 8.7 mmol/L (3-11); BUN 14 mg/dL (7-18); Bilirubin, Total 0.5 mg/dL (0.2-1.0); CO2 28.3 mmol/L (21.0-32.0); CREATININE 0.9 mg/dL (0.70-1.30); Calcium 9.3 mg/dL (8.5-10.1); Calculated LDL 66 mg/dL (<100); Chloride 102 mmol/L (98-107); Cholesterol 155 mg/dL (<200); Estimated GFR 91.31 (mL/min/1.73m2); Glucose 108 mg/dL (74-106); HDL Cholesterol 76 mg/dL (40-60); Potassium 4.9 mmol/L (3.5-5.1); Sodium 139 mmol/L (136-145); Total Protein 6.6 g/dL (6.4-8.2); Triglyceride 68 mg/dL (<150)
[2023-10-30 15:19] LABS: Hemoglobin A1C 5.8 % (<5.7)
== END 2023-10-30 10:41 | disposition home or self-care (01) ==
LOC: NCHCN 10:40
PROVIDERS: PCP Family Medicine; Visit Provider Family Medicine
DX: E78.5 Hyperlipidemia, unspecified (principal); R73.03 Prediabetes; Z77.011 Contact with and (suspected) exposure to lead
CPT/HCPCS: 80053; 80061; 83036; 83655; 85025

== ENCOUNTER 2024-04-05 01:41 | Outpatient (CLI) | payer MEDICARE, BC, SELFPAY ==
--- NOTE | 2024-04-05 13:45 | DI.RAD_ITS ---
Exam(s) XR LUMBAR SPINE COMPLETE EXAM: XR LUMBAR SPINE COMPLETE CLINICAL HISTORY: CHRONIC LOW BACK PAIN, M54.50+. TECHNIQUE: 2D digital imaging was performed. Five views. COMPARISON: No exams were available for comparison FINDINGS: BONES: No fracture or destructive lesion. Vertebral body heights are maintained. Prominent endplat e osteophytes. Facet degenerative changes are present greatest at L 4 5 and L5-S1. DISKS: Intervertebral disc spaces are minimally narrowed, greater posteriorly at L3-4 and L4-5.. ALIGNMENT: Lumbar spinal alignment is within normal limits. SOFT TISSUE: Aorta heavily calcified. Surgical clips noted to the left of the thoracolumbar junction . IMPRESSION: Prominent endplate osteophytes. Mild degenerative disc changes. Moderate facet degenerative changes . DATA REPOSITORY: RADIATION DOSE DELIVERED:
== END 2024-04-05 02:01 ==
LOC: DI 01:41
PROVIDERS: PCP Family Medicine; Visit Provider Family Medicine
DX: M25.78 Osteophyte, vertebrae (principal)
CPT/HCPCS: 72110